=== PATIENT | female | born 1945 | race Caucasian/White ===

== ENCOUNTER 2017-09-25 08:45 | Outpatient (RCR) | payer OTHER, SELFPAY ==
--- NOTE | 2017-09-26 12:04 | PT.OTN ---
Current Diagnoses Other intervertebral disc degeneration, lumbar region (09/25/17) Radiculopathy, lumbar region (09/25/17) Low back pain (09/25/17) Physical Therapy Treatment Note PT-OP-A Visit Information Start: 09/25/17 08:46 Freq: Status: Active Protocol: Document 09/25/17 08:45 AMB (Rec: 09/25/17 09:27 AMB [id number]) Out-Patient Physical Therapy Visit Information Visit Information Visit Type Treatment Note Visit Start Time 08:50 Visit Stop Time 09:30 Total Visit Minutes 50 Visit Number 11 PT-OP-C Subjective Start: 09/25/17 08:46 Freq: Status: Active Protocol: Document 09/25/17 08:45 AMB (Rec: 09/26/17 12:00 AMB [email or web address]) OP-PT Subjective Patient Comments Patient Comments Pt has been walking and doing her exercises without reproducing back pain. She did have increased back pain Josue evening when cooking, but admits she has a hard time of being aware of her body mechanics. Patient Reported Progress Improving PT-OP-K Range of Motion Start: 09/25/17 08:46 Freq: Status: Active Protocol: Document 09/25/17 08:45 AMB (Rec: 09/26/17 12:00 AMB [email or web address]) Lumbar Spine Range of Motion Lumbar Spine Active Degrees Testing Position Standing Flexion 60 Extension 30 Lateral Flexion Left 30 Lateral Flexion Right 30 PT-OP-M Strength Start: 09/25/17 08:46 Freq: Status: Active Protocol: Document 09/25/17 08:45 AMB (Rec: 09/26/17 12:00 AMB [email or web address]) Hip Strength Hip Manual Muscle Testing Left Flexion (L2) 4+ Good+ Extension (S1) 5 Normal Abduction 4 Good Right Flexion (L2) 5 Normal Extension (S1) 5 Normal Abduction 4+ Good+ Knee Strength Knee Manual Muscle Testing Left Flexion (S2) 5 Normal Extension (L3) 5 Normal Right Flexion (S2) 5 Normal Extension (L3) 5 Normal PT-OP-Q Treatments Start: 09/25/17 08:46 Freq: Status: Active Protocol: Document 09/25/17 08:45 AMB (Rec: 09/26/17 12:00 AMB [email or web address]) Therapeutic Exercises Supine Exercises 3 Supine Exercise Name 90-90 tap down Reps/Minutes 1x10 2 Supine Exercise Name Bridge Side bilateral Reps/Minutes 2x10 1 Supine Exercise Name SLR Side bilateral Reps/Minutes 2x10 Sidelying Exercises 1 Sidelying Exercise Name hip abduction Side bilateral Standing Exercises 1 Standing Exercise Name standing marching Side bilateral Therapeutic Activity Therapeutic Activity 1 Name Lifting technique Reps/Minutes 15 Comments Safe body mechanics in the kitchen PT-OP-T Assessment and Plan Start: 09/25/17 08:46 Freq: Status: Active Protocol: Document 09/25/17 08:45 AMB (Rec: 09/26/17 12:00 AMB [email or web address]) Physical Therapy Assessment Goals 2 Impairment Pain Short Term Goal (STG) The patient will show overall decreased muscular tension by tolerating moderate palpation of her left posterior hip. -- MET STG Duration 4 weeks Half-Way Goal (LTG) The patient will be independent with a core and hip stabilization home exercise program. --MET LTG Duration 8 weeks 1 Impairment Walking and standing Short Term Goal (STG) The patient will walk 2 miles with 4/10 pain or less-- MET STG Duration 4 weeks Deputy Coroner Goal (LTG) The patient will stand to make dinner with 4/10 pain or less .-- MET LTG Duration 8 weeks Assessment Summary Assessment Patient has significantly decreased her pain by avoiding steep hills on her walks. Her core stability has significantly improved with PT . She does continue to have weakness in her hips on the left side, likely caused by her lumbar dysfunction. She is very motivated to continue with her HEP and should be able to do so at this time independently. Physical Therapy Plan Discharge Physical Therapy Discharge Reasons Goals Met
== END 2017-10-17 12:20 ==
LOC: PHYS 08:45
PROVIDERS: Family Provider Family Medicine; PCP Family Medicine; Visit Provider Family Medicine
DX: M54.5 Low back pain (principal); M54.16 Radiculopathy, lumbar region; M51.36 Other intervertebral disc degeneration, lumbar region
CPT/HCPCS: 97110; 97530

== ENCOUNTER → 2017-11-14 07:44 | Outpatient (CLI) | payer OTHER, SELFPAY ==
--- NOTE | 2017-11-14 | DI.MG.S_ITS ---
BILATERAL DIGITAL SCREENING MAMMOGRAM 3D/2D WITH CAD: 11/14/2017 CLINICAL: Routine screening. Comparison is made to exams dated: 11/08/2016 mammogram, 10/05/2014 mammogram, and 09/22/2012 mammogram - [facility]. The tissue of both breasts is heterogeneously dense. This may lower the sensitivity of mammography. Current study was also evaluated with a Computer Aided Detection (CAD) system. No significant masses, calcifications, or other findings are seen in either breast. There has been no significant interval change. IMPRESSION: NEGATIVE There is no mammographic evidence of malignancy. A 1 year screening mammogram is recommended. NOTE: For mammograms, a report in lay terms will be sent to the patient. Approximately 15% of breast malignancies will not be visualized mammographically. In the management of a palpable breast mass, a negative mammogram must not discourage biopsy of a clinically suspicious lesion. Electronically Signed By: Winifred nicolas/anthony:11/14/2017 10:55:45 letter sent: Normal Exam ACR BI-RADS Category 1: Negative 3341F
== END ==
PROVIDERS: Family Provider Family Medicine; PCP Family Medicine; Visit Provider Family Medicine
DX: Z12.31 Encounter for screening mammogram for malignant neoplasm of breast (principal)
CPT/HCPCS: 77063; 77067

== ENCOUNTER → 2018-10-06 08:16 | Outpatient (CLI) | payer OTHER, SELFPAY ==
[2018-10-06 09:59] LABS: Add Manual Diff / Slide Review NO; Basophils Absolute Auto 100 /uL (0-100); Basophils Percent Auto 0.8 % (0-2); Eosinophils Absolute Auto 800 /uL (0-450); Hematocrit 43.5 % (36-46); Hemoglobin 14.5 g/dL (12.0-16.0); Lymphocytes Absolute Auto 2600 /uL (1100-4500); Lymphocytes Percent Auto 22.2 % (25-40); Mean Corpuscular HGB Conc 33.3 % (30-36); Mean Corpuscular Hemoglobin 29.3 PG (26-34); Mean Corpuscular Volume 88.1 fL (80-100); Monocytes Absolute Auto 1000 /uL (0-900); Neutrophils Absolute Auto 7100 /uL (1500-7000); Red Blood Cell Count 4.93 X10^6/uL (4.0-5.2); Red Cell Distribution Width 14.1 % (11.6-14.8); White Blood Cell Count 11.6 X10^3/uL (4.5-11.0)
[2018-10-06 10:02] LABS: Platelet Count 1036 X10^3/uL (150-400)
[2018-10-06 10:23] LABS: Platelet Estimate Increased on smear
[2018-10-06 10:54] LABS: Alanine Aminotransferase 25 IU/L (9-52); Albumin 4.3 g/dL (3.5-5.0); Albumin Globulin Ratio 1.8 (1.0-2.8); Alkaline Phosphatase 51 U/L (38-126); Aspartate Aminotransferase 46 IU/L (14-36); BUN Creatinine Ratio 23.3 (6-22); Bilirubin Total 0.7 mg/dL (0.2-1.3); Blood Urea Nitrogen 21 mg/dL (7-17); Calcium 9.4 mg/dL (8.4-10.2); Carbon Dioxide 26 mmol/L (22-32); Chloride 104 mmol/L (98-107); Cholesterol 141 mg/dL (140-199); Estimated Glomerular Filt Rate > 60.0 mL/min (>60); Globulin 2.4 g/dL (1.7-4.1); Glucose 87 mg/dL (80-110); HDL Cholesterol 41 mg/dL (40-60); HEMOLYSIS < 15 (0-50); LDL Cholesterol Calculated 81 mg/dL (<100); Potassium 3.7 mmol/L (3.4-5.1); Sodium 140 mmol/L (137-145); Total Protein 6.7 g/dL (6.3-8.2); Triglycerides 96 mg/dL (35-150)
[2018-10-06 11:14] LABS: Thyroid Stimulating Hormone 2.78 uIU/mL (0.47-4.68)
== END ==
PROVIDERS: PCP Family Medicine; Visit Provider Family Medicine
DX: E78.5 Hyperlipidemia, unspecified (principal); N28.9 Disorder of kidney and ureter, unspecified; R89.9 Unspecified abnormal finding in specimens from other organs, systems and tissues; Z13.0 Encounter for screening for diseases of the blood and blood-forming organs and certain disorders involving the immune mechanism; Z13.29 Encounter for screening for other suspected endocrine disorder
CPT/HCPCS: 36415; 80053; 80061; 84443; 85025

== ENCOUNTER → 2018-11-17 16:39 | Outpatient (CLI) | payer OTHER, SELFPAY ==
[2018-11-17 17:03] LABS: Basophils Absolute Auto 100 /uL (0-100); Basophils Percent Auto 0.8 % (0-2); Eosinophils Absolute Auto 1100 /uL (0-450); Eosinophils Percent Auto 7.8 % (2-4); Hematocrit 44.8 % (36-46); Hemoglobin 14.5 g/dL (12.0-16.0); Lymphocytes Absolute Auto 3000 /uL (1100-4500); Lymphocytes Percent Auto 21.6 % (25-40); Mean Corpuscular HGB Conc 32.5 % (30-36); Mean Corpuscular Hemoglobin 28.8 PG (26-34); Mean Corpuscular Volume 88.7 fL (80-100); Monocytes Absolute Auto 1200 /uL (0-900); Monocytes Percent Auto 8.7 % (3-14); Neutrophils Absolute Auto 8400 /uL (1500-7000); Neutrophils Percent Auto 61.1 % (50-75); Red Blood Cell Count 5.05 X10^6/uL (4.0-5.2); Red Cell Distribution Width 14.3 % (11.6-14.8); White Blood Cell Count 13.8 X10^3/uL (4.5-11.0)
[2018-11-17 17:19] LABS: Alanine Aminotransferase 27 IU/L (9-52); Albumin 4.4 g/dL (3.5-5.0); Albumin Globulin Ratio 1.6 (1.0-2.8); Alkaline Phosphatase 52 U/L (38-126); Aspartate Aminotransferase 27 IU/L (14-36); BUN Creatinine Ratio 23.6 (6-22); Bilirubin Total 0.4 mg/dL (0.2-1.3); Blood Urea Nitrogen 26 mg/dL (7-17); Calcium 10.4 mg/dL (8.4-10.2); Carbon Dioxide 28 mmol/L (22-32); Chloride 104 mmol/L (98-107); Estimated Glomerular Filt Rate 48.6 mL/min (>60); Globulin 2.7 g/dL (1.7-4.1); Glucose 89 mg/dL (80-110); HEMOLYSIS < 15 (0-50); Potassium 3.9 mmol/L (3.4-5.1); Sodium 141 mmol/L (137-145); Total Protein 7.1 g/dL (6.3-8.2)
[2018-11-17 17:55] LABS: Add Manual Diff / Slide Review SLIDE REVIEW; Platelet Count 1021 X10^3/uL (150-400)
[2018-11-17 17:56] LABS: Platelet Estimate Increased on smear; RBC Morphology Normal Morphology
[2018-11-24 08:26] LABS: Amino Acid p.Val617Phe; Clinical Indication WHOLE BLOOD EDTA; Exon Exon 14; Gene JAK2; JAK2 V617F DETECTED (NOT DETECTED); Mutation Frequency 8.1; Mutation Type missense; Nucleotide Change c.1849G>T; Reference COSM12600
== END ==
PROVIDERS: PCP Family Medicine
DX: D47.3 Essential (hemorrhagic) thrombocythemia (principal)
CPT/HCPCS: 36415; 80053; 81270; 85025

== ENCOUNTER → 2018-12-02 10:19 | Outpatient (CLI) | payer OTHER, SELFPAY ==
[2018-12-02 10:37] LABS: Add Manual Diff / Slide Review NO; Basophils Absolute Auto 0 /uL (0-100); Basophils Percent Auto 0.4 % (0-2); Eosinophils Absolute Auto 900 /uL (0-450); Eosinophils Percent Auto 7.7 % (2-4); Hematocrit 43.7 % (36-46); Hemoglobin 14.5 g/dL (12.0-16.0); Lymphocytes Absolute Auto 2500 /uL (1100-4500); Lymphocytes Percent Auto 22.3 % (25-40); Mean Corpuscular HGB Conc 33.1 % (30-36); Mean Corpuscular Hemoglobin 29.5 PG (26-34); Mean Corpuscular Volume 89.1 fL (80-100); Monocytes Absolute Auto 900 /uL (0-900); Monocytes Percent Auto 7.7 % (3-14); Neutrophils Absolute Auto 7000 /uL (1500-7000); Neutrophils Percent Auto 61.9 % (50-75); Red Blood Cell Count 4.91 X10^6/uL (4.0-5.2); Red Cell Distribution Width 14.4 % (11.6-14.8); White Blood Cell Count 11.3 X10^3/uL (4.5-11.0)
[2018-12-02 11:12] LABS: Platelet Count 1019 X10^3/uL (150-400); RBC Morphology Normal Morphology
== END ==
PROVIDERS: PCP Family Medicine
DX: D47.3 Essential (hemorrhagic) thrombocythemia (principal)
CPT/HCPCS: 36415; 85025

== ENCOUNTER → 2019-05-25 09:56 | Outpatient (CLI) | payer OTHER, SELFPAY ==
[2019-05-25 10:40] LABS: Add Manual Diff / Slide Review NO; Basophils Absolute Auto 100 /uL (0-100); Basophils Percent Auto 1.2 % (0-2); Eosinophils Absolute Auto 200 /uL (0-450); Eosinophils Percent Auto 2.5 % (2-4); Hematocrit 37.8 % (36-46); Hemoglobin 13.6 g/dL (12.0-16.0); Lymphocytes Absolute Auto 2100 /uL (1100-4500); Lymphocytes Percent Auto 25.4 % (25-40); Mean Corpuscular Hemoglobin 40.9 PG (26-34); Mean Corpuscular Volume 113.7 fL (80-100); Monocytes Absolute Auto 700 /uL (0-900); Monocytes Percent Auto 8.5 % (3-14); Neutrophils Absolute Auto 5200 /uL (1500-7000); Neutrophils Percent Auto 62.4 % (50-75); Platelet Count 388 X10^3/uL (150-400); Red Blood Cell Count 3.33 X10^6/uL (4.0-5.2); Red Cell Distribution Width 13.1 % (11.6-14.8); White Blood Cell Count 8.3 X10^3/uL (4.5-11.0)
[2019-05-25 10:59] LABS: Anisocytosis 1+
== END ==
PROVIDERS: PCP Family Medicine
DX: D47.3 Essential (hemorrhagic) thrombocythemia (principal)
CPT/HCPCS: 36415; 85025

== ENCOUNTER → 2019-11-03 07:37 | Outpatient (CLI) | payer OTHER, SELFPAY ==
[2019-11-03 09:16] LABS: BUN Creatinine Ratio 24.2 (6-22); Blood Urea Nitrogen 23 mg/dL (7-17); Calcium 9.6 mg/dL (8.4-10.2); Carbon Dioxide 26 mmol/L (22-32); Chloride 105 mmol/L (98-107); Cholesterol 159 mg/dL (140-199); Estimated Glomerular Filt Rate 57.3 mL/min (>60); Glucose 87 mg/dL (80-110); HDL Cholesterol 48 mg/dL (40-60); HEMOLYSIS < 15 (0-50); LDL Cholesterol Calculated 91 mg/dL (<100); Potassium 4.1 mmol/L (3.4-5.1); Sodium 138 mmol/L (137-145); Triglycerides 101 mg/dL (35-150)
== END ==
PROVIDERS: PCP Family Medicine; Referring Provider Family Medicine; Visit Provider Family Medicine
DX: D47.3 Essential (hemorrhagic) thrombocythemia (principal); E78.2 Mixed hyperlipidemia
CPT/HCPCS: 36415; 80048; 80061

== ENCOUNTER → 2019-11-22 10:32 | Outpatient (CLI) | payer OTHER, SELFPAY ==
--- NOTE | 2019-11-22 10:41 | DI.RAD.S_ITS ---
PROCEDURE: XR HAND LT MIN 3V INDICATIONS: left thumb pain TECHNIQUE: 3 views of the hand(s) acquired. COMPARISON: None. FINDINGS: Bones: No fractures or dislocations. Carpal bones are normally aligned. No suspicious bony lesions. Diffuse joint narrowing with therapeutic osteophyte formation, severe involving the first CMC joint. Soft tissues: No suspicious soft tissue calcifications. IMPRESSION: Diffuse joint degeneration, severe involving the first CMC joint. Dictated by: Jacoby Falk [facility] Interpreted: Dylon Meeks MD on 11/22/2019 at 11:16 Approved by: Dylon Meeks M.D. on 11/22/2019 at 13:24
== END ==
PROVIDERS: PCP Family Medicine; Referring Provider Family Medicine; Visit Provider Family Medicine
DX: M79.645 Pain in left finger(s) (principal); M18.12 Unilateral primary osteoarthritis of first carpometacarpal joint, left hand
CPT/HCPCS: 73130

== ENCOUNTER → 2019-11-23 11:24 | Outpatient (CLI) | payer OTHER, SELFPAY ==
--- NOTE | 2019-11-23 | DI.MG.S_ITS ---
BILATERAL DIGITAL SCREENING MAMMOGRAM 3D/2D WITH CAD: 11/23/2019 CLINICAL: Routine screening. Comparison is made to exams dated: 11/14/2017 mammogram, 11/08/2016 mammogram, and 10/05/2014 mammogram - [facility]. There are scattered fibroglandular elements in both breasts. Current study was also evaluated with a Computer Aided Detection (CAD) system. No significant masses, calcifications, or other findings are seen in either breast. There has been no significant interval change. IMPRESSION: NEGATIVE There is no mammographic evidence of malignancy. A 1 year screening mammogram is recommended. This exam was interpreted at Station ID: [id number]. NOTE: For mammograms, a report in lay terms will be sent to the patient. Approximately 15% of breast malignancies will not be visualized mammographically. In the management of a palpable breast mass, a negative mammogram must not discourage biopsy of a clinically suspicious lesion. Electronically Signed By: Winifred nicolas/anthony:11/23/2019 12:01:27 letter sent: Normal Exam ACR BI-RADS Category 1: Negative 3341F
== END ==
PROVIDERS: PCP Family Medicine; Referring Provider Family Medicine; Visit Provider Family Medicine
DX: Z12.31 Encounter for screening mammogram for malignant neoplasm of breast (principal)
CPT/HCPCS: 77063; 77067

== ENCOUNTER → 2020-03-07 09:45 | Outpatient (CLI) | payer OTHER, SELFPAY ==
--- NOTE | 2020-03-07 09:46 | DI.RAD.S_ITS ---
PROCEDURE: XR CHEST 2V INDICATIONS: Cough 2-3 months TECHNIQUE: 2 views of the chest were acquired. COMPARISON: [facility], CHEST 2 VIEW, 03/20/2010, 13:47. [facility], CHEST 2 VIEW, 08/09/2008, 8:52. FINDINGS: Surgical changes and devices: None. Lungs and pleura: Lungs are clear. No pleural effusions or pneumothorax. Mediastinum: Mediastinal contours are normal. Heart size is normal. Bones and chest wall: No suspicious bony abnormalities. Soft tissues appear unremarkable. IMPRESSION: Slight convex rightward scoliosis at the midthoracic spine, no source of cough is found. Dictated by: Ilan Ariza M.D. on 03/07/2020 at 10:50 Approved by: Ilan Ariza M.D. on 03/07/2020 at 10:50
== END ==
PROVIDERS: PCP Family Medicine; Referring Provider Family Medicine; Visit Provider Family Medicine
DX: R05 Cough (principal)
CPT/HCPCS: 71046

== ENCOUNTER → 2020-06-16 10:29 | Outpatient (CLI) | payer MEDICARE, SELFPAY ==
[2020-06-16] MEDS: COVID-19 VACC #1, MRNA(MOD) 100 MCG/0.5 ML VIAL IM (10:35)
== END ==
PROVIDERS: PCP Family Medicine; Visit Provider Internal Medicine
DX: Z23 Encounter for immunization (principal)
CPT/HCPCS: 0011A; 91301

== ENCOUNTER → 2020-07-14 10:44 | Outpatient (CLI) | payer MEDICARE, SELFPAY ==
[2020-07-14] MEDS: COVID-19 VACC #2, MRNA(MOD) 100 MCG/0.5 ML VIAL IM (10:47)
== END ==
PROVIDERS: PCP Family Medicine; Visit Provider Internal Medicine
DX: Z23 Encounter for immunization (principal)
CPT/HCPCS: 0012A; 91301

== ENCOUNTER → 2020-12-29 08:13 | Outpatient (CLI) | payer OTHER, SELFPAY ==
--- NOTE | 2020-12-29 | DI.MG.S_ITS ---
BILATERAL DIGITAL SCREENING MAMMOGRAM 3D/2D WITH CAD: 12/29/2020 CLINICAL: Routine screening. Comparison is made to exams dated: 11/23/2019 mammogram, 11/14/2017 mammogram, and 11/08/2016 mammogram - [facility]. There are scattered fibroglandular elements in both breasts. Current study was also evaluated with a Computer Aided Detection (CAD) system. No significant masses, calcifications, or other findings are seen in either breast. There has been no significant interval change. IMPRESSION: NEGATIVE There is no mammographic evidence of malignancy. A 1 year screening mammogram is recommended. This exam was interpreted at Station ID: [id number]. NOTE: For mammograms, a report in lay terms will be sent to the patient. Approximately 15% of breast malignancies will not be visualized mammographically. In the management of a palpable breast mass, a negative mammogram must not discourage biopsy of a clinically suspicious lesion. Electronically Signed By: Ciaran durán/anthony:12/29/2020 09:04:32 letter sent: Normal Exam ACR BI-RADS Category 1: Negative 3341F
== END ==
PROVIDERS: PCP Family Medicine; Referring Provider Family Medicine; Visit Provider Family Medicine
DX: Z12.31 Encounter for screening mammogram for malignant neoplasm of breast (principal)
CPT/HCPCS: 77063; 77067

== ENCOUNTER → 2021-07-11 09:48 | Outpatient (CLI) | payer OTHER, SELFPAY ==
--- NOTE | 2021-07-11 09:50 | DI.RAD.S_ITS ---
PROCEDURE: XR DEXA AXIAL SKELETON INDICATIONS: osteopenia COMPARISON: None. FINDINGS: This blank DEXA report has been sent in error by the PACS system. The correct and complete report will be forthcoming in 1-2 days. Thank you for your patience and understanding. Dictated by: Trini Ferreira MD, PhD on 07/12/2021 at 8:18 Approved by: Trini Ferreira MD, PhD on 07/12/2021 at 8:18
== END ==
PROVIDERS: Family Provider Family Medicine; PCP Family Medicine; Referring Provider Family Medicine; Visit Provider Family Medicine
DX: Z78.0 Asymptomatic menopausal state (principal); M81.0 Age-related osteoporosis without current pathological fracture
CPT/HCPCS: 77080

== ENCOUNTER → 2021-11-23 08:00 | Outpatient (CLI) | payer OTHER, SELFPAY ==
[2021-11-23 09:55] LABS: Cholesterol 156 mg/dL (140-199); HDL Cholesterol 55 mg/dL (40-60); LDL Cholesterol Calculated 85 mg/dL (<100); Triglycerides 82 mg/dL (35-150)
== END ==
PROVIDERS: Family Provider Family Medicine; PCP Family Medicine; Referring Provider Family Medicine; Visit Provider Family Medicine
DX: E78.2 Mixed hyperlipidemia (principal)
CPT/HCPCS: 36415; 80061

== ENCOUNTER → 2021-11-29 11:02 | Outpatient (CLI) | payer OTHER, SELFPAY ==
--- NOTE | 2021-11-29 11:03 | DI.RAD.S_ITS ---
PROCEDURE: XR CHEST 2V INDICATIONS: assess heart shadow TECHNIQUE: 2 views of the chest were acquired. COMPARISON: [facility], , XR CHEST 2V, 03/07/2020, 9:35. FINDINGS: Surgical changes and devices: None. Lungs and pleura: Lungs are clear. No pleural effusions or pneumothorax. Mediastinum: Mediastinal contours are normal. Heart size is normal. Bones and chest wall: No suspicious bony abnormalities. Soft tissues appear unremarkable. IMPRESSION: No acute pulmonary process. Dictated by: Jeaneth Franco M.D. on 11/29/2021 at 13:31 Approved by: Jeaneth Franco M.D. on 11/29/2021 at 13:31
== END ==
PROVIDERS: Family Provider Family Medicine; PCP Pediatrics; Referring Provider Pediatrics; Visit Provider Pediatrics
DX: D47.3 Essential (hemorrhagic) thrombocythemia (principal); E78.2 Mixed hyperlipidemia; N18.31 Chronic kidney disease, stage 3a; R00.2 Palpitations
CPT/HCPCS: 71046

== ENCOUNTER → 2021-12-06 09:57 | Outpatient (CLI) | payer OTHER, SELFPAY ==
[2021-12-06 10:30] LABS: Add Manual Diff / Slide Review NO; Basophils Absolute Auto 100 /uL (0-100); Basophils Percent Auto 1.1 % (0-2); Eosinophils Absolute Auto 100 /uL (0-450); Eosinophils Percent Auto 1.9 % (2-4); Hemoglobin 12.7 g/dL (12.0-16.0); Lymphocytes Absolute Auto 1400 /uL (1100-4500); Lymphocytes Percent Auto 24.4 % (25-40); Mean Corpuscular HGB Conc 34.4 % (30-36); Mean Corpuscular Hemoglobin 40.2 PG (26-34); Mean Corpuscular Volume 116.8 fL (80-100); Monocytes Absolute Auto 600 /uL (0-900); Neutrophils Absolute Auto 3600 /uL (1500-7000); Neutrophils Percent Auto 61.6 % (50-75); Platelet Count 304 X10^3/uL (150-400); Red Blood Cell Count 3.17 X10^6/uL (4.0-5.2); Red Cell Distribution Width 12.8 % (11.6-14.8); White Blood Cell Count 5.9 X10^3/uL (4.5-11.0)
[2021-12-06 10:50] LABS: Alanine Aminotransferase 20 IU/L (<35); Albumin 4.1 g/dL (3.5-5.0); Albumin Globulin Ratio 1.6 (1.0-2.8); Alkaline Phosphatase 45 U/L (38-126); Aspartate Aminotransferase 25 IU/L (14-36); BUN Creatinine Ratio 30.3 (6-22); Bilirubin Total 0.5 mg/dL (0.2-1.3); Blood Urea Nitrogen 27 mg/dL (7-17); Calcium 8.9 mg/dL (8.4-10.2); Carbon Dioxide 26 mmol/L (22-32); Chloride 106 mmol/L (98-107); Estimated Glomerular Filt Rate > 60 mL/min (>60); Globulin 2.5 g/dL (1.7-4.1); Glucose 95 mg/dL (80-110); HEMOLYSIS < 15 (0-50); Magnesium 2.2 mg/dL (1.6-2.3); Potassium 4.2 mmol/L (3.4-5.1); Sodium 138 mmol/L (137-145); Total Protein 6.6 g/dL (6.3-8.2)
[2021-12-06 10:55] LABS: Anisocytosis 1+; Macrocytosis 2+
[2021-12-06 11:23] LABS: TSH w/ Reflex to FT4 2.44 uIU/mL (0.47-4.68)
== END ==
PROVIDERS: Family Provider Family Medicine; PCP Pediatrics; Referring Provider Pediatrics; Visit Provider Pediatrics
DX: D47.3 Essential (hemorrhagic) thrombocythemia (principal); E78.2 Mixed hyperlipidemia; N18.31 Chronic kidney disease, stage 3a; R00.2 Palpitations
CPT/HCPCS: 36415; 80053; 83735; 84443; 85025

== ENCOUNTER → 2021-12-12 10:12 | Outpatient (CLI) | payer OTHER, SELFPAY ==
--- NOTE | 2021-12-26 09:07 | PM.CARDMON.1 ---
[employer] Report Referral & Results Date Patient Seen: 12/12/21 Requesting provider: Andre Olson Indication: Palpitations Duration of monitoring (days): 8 Diary information: There were 9 patient triggered events and 7 patient diary entries Patient triggered events were variably associated with (within 45 seconds) sinus rhythm, PACs, PVCs, and SVT Patient diary events were associated with (within 45 seconds) sinus rhythm and PACs Data: Minimum heart rate identified was 46 beats per minute at 03:12 on 12/20/2021 Maximum sinus heart rate was 136 beats per minute at 08:36 on 12/19/2021 Maximum overall heart rate was 167 beats per minute at 11:11 on 12/16/2021 during a run of SVT Less than 1% of identified beats were ventricular or supraventricular ectopic in origin, which would classify them as rare. There were 16 runs of SVT with the fastest being a 5 beat run at a rate of 167 beats per minute, the longest lasting 18 beats No pauses of 3 seconds or longer or episodes of atrial fibrillation identified on this study Impression: This study demonstrates rare PACs and PVCs. Also very rare very brief runs of SVT as above Patient's sense of palpitations based on patient events are most likely associated with rare PACs but could also be due to rare PVCs Clinical correlation suggested
== END ==
PROVIDERS: Family Provider Family Medicine; PCP Pediatrics; Referring Provider Pediatrics; Visit Provider Pediatrics
DX: R00.2 Palpitations (principal)
CPT/HCPCS: 93242; 93248

== ENCOUNTER → 2022-01-08 11:37 | Outpatient (CLI) | payer OTHER, SELFPAY ==
--- NOTE | 2022-01-08 | DI.MG.S_ITS ---
BILATERAL DIGITAL SCREENING MAMMOGRAM 3D/2D WITH CAD: 01/08/2022 CLINICAL: Routine screening. Comparison is made to exams dated: 12/29/2020 mammogram, 11/23/2019 mammogram, 11/14/2017 mammogram, and 11/08/2016 mammogram - [facility]. The tissue of both breasts is heterogeneously dense. This may lower the sensitivity of mammography. Current study was also evaluated with a Computer Aided Detection (CAD) system. No significant masses, calcifications, or other findings are seen in either breast. There has been no significant interval change. IMPRESSION: NEGATIVE There is no mammographic evidence of malignancy. A 1 year screening mammogram is recommended. Based on the Tyrer Cuzick model (a risk assessment model) the patient's lifetime risk is 4.4% and her 10 year risk is 0.0%. According to the ACR, ACS, and NCCN guidelines, an annual breast MRI exam along with mammogram is recommended if the patient's lifetime risk is 20% or greater. This exam was interpreted at Station ID: [id number]. NOTE: For mammograms, a report in lay terms will be sent to the patient. Approximately 15% of breast malignancies will not be visualized mammographically. In the management of a palpable breast mass, a negative mammogram must not discourage biopsy of a clinically suspicious lesion. Electronically Signed By: Dylon steiner/anthony:01/08/2022 14:17:02 letter sent: Normal Exam ACR BI-RADS Category 1: Negative 3341F
== END ==
PROVIDERS: Family Provider Family Medicine; PCP Pediatrics; Referring Provider Pediatrics; Visit Provider Pediatrics
DX: Z12.31 Encounter for screening mammogram for malignant neoplasm of breast (principal)
CPT/HCPCS: 77063; 77067

== ENCOUNTER → 2022-01-25 13:38 | Outpatient (CLI) | payer OTHER, SELFPAY ==
--- NOTE | 2022-01-25 13:39 | DI.ECHO.S_ITS ---
[place] [facility] +---------+ : : [address] : : : : [id number] : : : : Phone: [phone]---------+ Echocardiogram Report + + :Name: MARQUITA HALL Study Date: 01/25/2022 Height: 62 in : :[facility] ReadingLocation: Weight: 135 lb : : Gender: Female BSA: 1.6 m2 : :: 1945 Age: 76 yrs BP: 138/82 mmHg: :Reason For Study: SVT, PALPITATIONS : :Ordering Physician: DAY, : :POLINA Foster Performed By: Leonor Herrera : :Referring: POLINA BERNSTEIN : + + Interpretation Summary The patient was in sinus bradycardia with heart rates between 56-63 bpm during the exam. The left ventricle is normal in size and wall thickness. The ejection fraction is estimated to be 55-60%. Diastolic parameters suggest a relaxation abnormality of the left ventricle, consistent with probable normal filling pressures. There is mild mitral regurgitation. No prior study for comparison. Procedure: A two-dimensional transthoracic echocardiogram with color flow and Doppler was performed. The study quality was technically adequate. The patient had an echocardiogram, but there is no comparison study available. The patient was in sinus bradycardia with heart rates between 56-63 bpm during the exam. Left Ventricle: The left ventricle is normal in size and wall thickness. The ejection fraction is estimated to be 55-60%. Diastolic parameters suggest a relaxation abnormality of the left ventricle, consistent with probable normal filling pressures. Right Ventricle: The right ventricle is normal size. Right ventricular systolic function is at the lower limits of normal. Atria: The left atrial size is normal. Right atrial size is normal. There is no Doppler evidence for an interatrial shunt. Mitral Valve: The mitral valve is normal in structure and function. There is mild mitral regurgitation. Aortic Valve: The aortic valve is trileaflet. The aortic valve is mildly calcified. The aortic valve opens well. There is no aortic valve stenosis. No aortic regurgitation is present. Tricuspid Valve: The tricuspid valve is normal in structure and function. There is trace tricuspid regurgitation. Pulmonic Valve: The pulmonic valve leaflets are thin and pliable; valve motion is normal. There is no pulmonic valvular regurgitation. Great Vessels: The aortic root is normal size. The dimensions of the ascending aorta are normal. The IVC is of normal diameter and collapses greater than 50% with a sniff. This suggests a low right atrial pressure of 3 mm Hg. Pericardium/ Pleura There is no pericardial effusion. There is no pleural effusion. MMode/2D Measurements & Calculations LVIDd: 4.2 cm LVOT diam: 2.0 cm LVIDs: 2.9 cm Ao root diam: 2.7 cm FS: 31.6 % asc Aorta Diam: 3.1 cm EPSS: 0.97 cm Ao Arch Diam (Prox Trans): 2.3 cm IVSd: 0.79 cm LVPWd: 0.82 cm LV singh. diameter/BSA (cm/m^2): 2.6 LV sys. diameter/BSA (cm/m^2): 1.8 LA A2 area: 18.0 cm2 RA long axis: 4.8 cm LA A4 area: 14.1 cm2 RA area: 14.5 cm2 LA length (vol): 5.2 cm RA vol: 37.8 ml LA vol: 41.4 ml RA : 23.3 ml/m2 LA vol index: 25.6 ml/m2 IVC diam: 1.1 cm RVD1 (basal): 3.4 cm RVD2 (mid): 2.8 cm TAPSE: 1.6 cm Doppler Measurements & Calculations Ao V2 max: 129.9 cm/sec LVOT Max Tanmay: 101.0 cm/sec Ao V2 mean: 93.7 cm/sec LV V1 max P.1 mmHg Ao max P.8 mmHg LV V1 VTI: 24.9 cm Ao mean P.9 mmHg JOHAN(I,D): 2.6 cm2 Ao V2 VTI: 29.6 cm JOHAN(V,D): 2.4 cm2 sev ratio: 0.84 JOHAN indexed to BSA (cm^2/m^2): 1.6 MV E max tanmay: 66.5 cm/sec PA V2 max: 85.7 cm/sec MV A max tanmay: 70.1 cm/sec PA V2 mean: 54.2 cm/sec MV E/A: 0.95 PA mean P.4 mmHg Med Peak E' Tanmay: 6.7 cm/sec PA pr(Accel): 3.6 mmHg E/E' med: 10.0 Lat Peak E' Atnmay: 10.1 cm/sec E/E' lat: 6.6 E/e' average: 8.3 MV dec time: 0.27 sec SVLVOT): 76.9 ml Reading Physician:CHU
== END ==
PROVIDERS: Family Provider Family Medicine; PCP Pediatrics; Referring Provider Pediatrics; Visit Provider Pediatrics
DX: I47.1 Supraventricular tachycardia (principal); R00.2 Palpitations; R00.1 Bradycardia, unspecified; I34.0 Nonrheumatic mitral (valve) insufficiency
CPT/HCPCS: 93306

== ENCOUNTER → 2023-04-21 14:56 | Outpatient (CLI) | payer OTHER, SELFPAY ==
--- NOTE | 2023-04-21 14:57 | DI.MG.S_ITS ---
BILATERAL DIGITAL SCREENING MAMMOGRAM 3D/2D WITH CAD: 04/21/2023 CLINICAL: Routine screening. Comparison is made to exams dated: 01/08/2022 mammogram, 12/29/2020 mammogram, and 11/23/2019 mammogram - [facility]. Both breasts are heterogeneously dense, which may obscure small masses (category c / 51-75% glandular tissue). Current study was also evaluated with a Computer Aided Detection (CAD) system. No significant masses, calcifications, or other findings are seen in either breast. There has been no significant interval change. IMPRESSION: NEGATIVE There is no mammographic evidence of malignancy. A 1 year screening mammogram is recommended. Based on the Tyrer Cuzick model (a risk assessment model) the patient's lifetime risk is 3.5% and her 10 year risk is 0.0%. According to the ACR, ACS, and NCCN guidelines, an annual breast MRI exam along with mammogram is recommended if the patient's lifetime risk is 20% or greater. This exam was interpreted at Station ID: [id number]. NOTE: For mammograms, a report in lay terms will be sent to the patient. Approximately 15% of breast malignancies will not be visualized mammographically. In the management of a palpable breast mass, a negative mammogram must not discourage biopsy of a clinically suspicious lesion. Electronically Signed By: Winifred nicolas/anthony:04/21/2023 16:12:03 letter sent: Normal Exam ACR BI-RADS Category 1: Negative 3341F
== END ==
PROVIDERS: Family Provider Family Medicine; PCP Family Medicine; Referring Provider Family Medicine; Visit Provider Family Medicine
DX: Z12.31 Encounter for screening mammogram for malignant neoplasm of breast (principal)
CPT/HCPCS: 77063; 77067

== ENCOUNTER → 2023-05-21 09:07 | Outpatient (CLI) | payer OTHER, SELFPAY ==
[2023-05-21 11:20] LABS: Cholesterol 169 mg/dL (140-199); HDL Cholesterol 62 mg/dL (40-60); LDL Cholesterol Calculated 92 mg/dL (<100); Triglycerides 77 mg/dL (35-150)
[2023-05-21 11:25] LABS: High Sensitivity CRP - Cardiac 0.6 mg/L (1.0-3.0)
== END ==
PROVIDERS: Family Provider Family Medicine; PCP Family Medicine; Referring Provider Family Medicine; Visit Provider Family Medicine
DX: E78.2 Mixed hyperlipidemia (principal)
CPT/HCPCS: 36415; 80061; 86140

== ENCOUNTER → 2023-06-02 07:46 | Outpatient (CLI) | payer OTHER, SELFPAY | PROVIDERS: Family Provider Family Medicine; PCP Family Medicine; Visit Provider Physician Assistant | DX: R30.0 Dysuria (principal) | CPT/HCPCS: 87077; 87086; 87186 ==

== ENCOUNTER → 2023-07-15 07:25 | Outpatient (CLI) | payer OTHER, SELFPAY ==
[2023-07-15 08:46] LABS: C-Reactive Protein Quant < 0.5 mg/dL (<1.0); Cholesterol 209 mg/dL (140-199); HDL Cholesterol 51 mg/dL (40-60); LDL Cholesterol Calculated 136 mg/dL (<100); Triglycerides 108 mg/dL (35-150)
[2023-07-15 08:52] LABS: Free T3, Triiodothyronine Free 3.84 pg/mL (2.77-5.27); Free T4, Direct Thyroxine 1.01 ng/dL (0.78-2.19)
[2023-07-15 09:05] LABS: Thyroid Stimulating Hormone 3.92 uIU/mL (0.47-4.68)
== END ==
PROVIDERS: Family Provider Family Medicine; PCP Family Medicine; Referring Provider Family Medicine; Visit Provider Family Medicine
DX: N18.31 Chronic kidney disease, stage 3a (principal); Z13.29 Encounter for screening for other suspected endocrine disorder; M81.0 Age-related osteoporosis without current pathological fracture; D47.3 Essential (hemorrhagic) thrombocythemia
CPT/HCPCS: 36415; 80061; 84439; 84443; 84481; 86140

== ENCOUNTER → 2023-11-06 08:06 | Outpatient (CLI) | payer OTHER, SELFPAY ==
[2023-11-06 09:21] LABS: Cholesterol 218 mg/dL (140-199); HDL Cholesterol 62 mg/dL (40-60); LDL Cholesterol Calculated 135 mg/dL (<100); Triglycerides 107 mg/dL (35-150)
[2023-11-06 09:24] LABS: High Sensitivity CRP - Cardiac 0.8 mg/L (1.0-3.0)
== END ==
PROVIDERS: Family Provider Family Medicine; PCP Family Medicine; Referring Provider Family Medicine; Visit Provider Family Medicine
DX: E78.2 Mixed hyperlipidemia (principal); N18.31 Chronic kidney disease, stage 3a; D47.3 Essential (hemorrhagic) thrombocythemia
CPT/HCPCS: 36415; 80061; 86140